=== PATIENT | female | born 1950 | race Caucasian/White ===

== ENCOUNTER 2020-08-01 08:13 | Outpatient (CLI) | payer MEDICARE, SELFPAY ==
--- NOTE | 2020-08-01 08:21 | MM_ITS ---
WS: [id number] BILATERAL SCREENING DIGITAL MAMMOGRAM WITH CAD HISTORY: SCREENING COMPARISON: 02/03/2019, 07/24/2018 07/30/2017 and 06/11/2014 Bilateral CC and MLO views submitted. Computer aided detection analyzed. Breast composition: The breasts are heterogeneously dense, which may obscure small masses. No suspici ous masses, microcalcifications or architectural distortion. One centimeter asymmetry posterior to th e RIGHT nipple has been present on multiple prior examinations with no change. There are benign calci fications in each breast. MM/[place] [id number] IMPRESSION: BI-RADS: 2-Benign FOLLOW UP: 1 Year Follow-up
== END 2020-08-01 08:14 | disposition home or self-care (01) ==
LOC: RADSHAW 08:17
PROVIDERS: Family Provider Electrodiagnostic Medicine; PCP Electrodiagnostic Medicine; Visit Provider Electrodiagnostic Medicine
DX: Z12.31 Encounter for screening mammogram for malignant neoplasm of breast (principal)
CPT/HCPCS: 77067

== ENCOUNTER → 2021-12-05 09:08 | Outpatient (BNVA) | payer MEDICARE, SELFPAY | PROVIDERS: Family Provider Electrodiagnostic Medicine; PCP Electrodiagnostic Medicine; Referring Provider Electrodiagnostic Medicine; Visit Provider Podiatrist Foot & Ankle Surgery | DX: M20.5X2 Other deformities of toe(s) (acquired), left foot (principal); M20.5X1 Other deformities of toe(s) (acquired), right foot | CPT/HCPCS: 73630; 99203; 99204 ==

== ENCOUNTER → 2022-01-16 09:06 | Outpatient (BNVA) | payer MEDICARE, SELFPAY | PROVIDERS: Family Provider Electrodiagnostic Medicine; PCP Electrodiagnostic Medicine; Visit Provider Podiatrist Foot & Ankle Surgery | DX: M20.5X2 Other deformities of toe(s) (acquired), left foot (principal); M20.5X1 Other deformities of toe(s) (acquired), right foot | CPT/HCPCS: 99213 ==

== ENCOUNTER → 2022-07-02 15:03 | Outpatient (BNVA) | payer MEDICARE, SELFPAY | PROVIDERS: Family Provider Electrodiagnostic Medicine; PCP Electrodiagnostic Medicine; Visit Provider Podiatrist Foot & Ankle Surgery | DX: M20.5X2 Other deformities of toe(s) (acquired), left foot (principal); M20.5X1 Other deformities of toe(s) (acquired), right foot | CPT/HCPCS: 99213 ==

== ENCOUNTER → 2022-07-30 09:39 | Outpatient (BNVA) | payer MEDICARE, SELFPAY | PROVIDERS: PCP Electrodiagnostic Medicine; Visit Provider Podiatrist Foot & Ankle Surgery | DX: M20.5X2 Other deformities of toe(s) (acquired), left foot (principal); M20.5X1 Other deformities of toe(s) (acquired), right foot | CPT/HCPCS: 99214 ==

== ENCOUNTER 2022-08-14 05:40 | Day surgery (SDC) | payer MEDICARE, SELFPAY ==
[2022-08-13 09:04] VITALS: BMI 22.6
[2022-08-14] VITALS (7 sets, daily range): BP systolic 91–123; BP diastolic 55–73; PULSE 61–78; RESP 16–18; TEMP 36.3–36.4; O2SAT 93–97
--- NOTE | 2022-08-14 | XR_ITS ---
WS: [id number] Exam: XR foot LT 2V [id number] Date/Time of Exam: 08/14/2022 12:00 AM Reason For Exam: OR pic. Left foot chilectomy A single lateral image of the left forefoot is obtained for intraoperative purposes.
[2022-08-14] MEDS: acetaminophen 1,000 MG/100 ML PIGGYBACK 400 MG IV (06:13)
[2022-08-14] MEDS: gabapentin 300 mg Capsule PO (06:14)
[2022-08-14] MEDS: sodium chloride 0.9% 1,000 ML 30 ML IV (06:15)
--- NOTE | 2022-08-14 06:48 | W.PM.OPSUD ---
Surgery/Procedure H&P Update DATE OF PROCEDURE: August 14, 2022 DATE H&P PERFORMED: 07/30/22 CHANGES TO PREVIOUS DOCUMENTATION: No changes PREOP DIAGNOSIS: Left foot hallux limitus PLANNED PROCEDURE: Operation Date: 08/14/22 07:00 Proposed Procedures p :?Left foot cheilectomy CPT 31348,M20.22(Left) - Bebeto Miller DPM
--- NOTE | 2022-08-14 06:48 | ANES.PREANE2 ---
Pre-Anesthetic Assessment Height/Weight: Height 1.6 m Weight 58.06 kg Temp Pulse Resp BP Pulse Ox O2 Del Method 97.6 F 61 18 120/73 97 Room Air 08/14/22 06:01 08/14/22 06:01 08/14/22 06:01 08/14/22 06:01 08/14/22 06:01 08/14/22 06:09 Preop Diagnosis: Left foot hallux limitus Operation Date: 08/14/22 07:00 Proposed Procedures p :?Left foot cheilectomy CPT 38464,M20.22(Left) - Bebeto Miller DPM Familial anesthetic complications: None Was Beta Velma taken within 24 hours: N/A Was Clonidine taken within 24 hours: N/A Last intake: Intake Last Liquid Date 08/13/22 Last Liquid Time 22:30 Last Solid Date 08/13/22 Last Solid Time 22:30 Social No alcohol and No tobacco Exam alert, oriented x 3, clear to auscultation bilaterally and regular rate & rhythm Airway Mallampati: Class III Dentition: full Anesthetic Plan ASA status: 2 Anesthesia: MAC Other Pertinent Information alpha gal allergies Medications/Allergies Home Medications Medication Instructions Recorded Confirmed Last Taken Type epinephrine 0.3 mg/0.3 mL 0.3 ml SUBCUT PRN PRN Allergic 08/13/22 08/13/22 Unknown History injection, auto-injector Reaction montelukast 10 mg tablet 10 mg PO DAILY 08/13/22 08/13/22 08/14/22 History Allergies Allergy/AdvReac Type Severity Reaction Status Date / Time penicillin Allergy Mild ADR-Itching Uncoded 08/13/22 09:01 mammal products Allergy rash Uncoded 08/13/22 09:01 Current Medications Generic Name Dose Route Start Last Admin Trade Name Freq PRN Reason Stop Dose Admin Sodium Chloride 1,000 mls @ 30 mls/hr 08/14/22 06:00 08/14/22 06:15 Sodium Chloride 0.9% IV 08/15/22 05:59 30 mls/hr .Q24H PEDRO Administration Data Anesthesia Cardiac Studies: No Data to Display
[2022-08-14] MEDS: clindamycin 600 MG/50 ML PREMIX 100 MG IV (07:05)
--- NOTE | 2022-08-14 15:53 | ANE.PACU2 ---
Inpatient post-anesthesia follow up: Airway intact: Yes Vital signs: Temperature 97.3 F Pulse Rate 68 Respiratory Rate 18 Blood Pressure 123/68 Pulse Oximetry 96 Oxygen Delivery Me thod Room Air Oxygen Flow Rate Fraction of Inspir ed Oxygen Hydration adequate: Yes Nausea and vomiting: No Pain level: 1 Mental status: Baseline
--- NOTE | 2022-08-14 17:00 | PM.OP ---
Operative Report Date of procedure: August 14, 2022 Pre-op diagnosis: Preop Diagnosis Left foot hallux limitus Post-op diagnosis: Same Post-op findings: Significant dorsal spurring to left first metatarsophalangeal joint consistent with hallux limitus. First metatarsal head cartilage appeared healthy with no defects. Subchondral cyst noted to the lateral aspect of first metatarsal head. Procedure done: Left foot first metatarsophalangeal joint cheilectomy CPT 79055 Implants: None Surgeon: Dr. Bebeto Miller D.P.MLuiza Estimated blood loss: Less than 10 cc Complications: None Findings: See above Procedure: Patient is a 72-year-old female that has a history of left hallux limitus. The patient has had the aforementioned chief complaint for some time. Conservative treatment measures have been attempted and the patient has opted for surgical intervention at this time. A lengthy discussion regarding the procedure, including risks and complications has been had with the patient and is noted in the recent clinic note. Written and verbal consent have been obtained. All patient questions have been answered to the patient?s satisfaction. No written or verbal guarantees have been given or implied. The patient has been NPO since midnight. The history has been reviewed and the history and physical is current. The signed consent was confirmed and placed in the patient chart. Patient imaging has been reviewed and is consistent with the diagnosis. Under mild sedation, the patient was brought into the operating room and placed on the table in the supine position. IV antibiotics were given by the anesthesia team as preoperative surgical prophylaxis. IV sedation was then performed by the anesthesiateam. A pneumatic tourniquet was then placed about the left ankle. A local field block was performed using 0.5% Marcaine plain. The operative extremity was then prepped and draped in the usual fashion. The extremity was then elevated and exsanguinated before the tourniquet was inflated to 250 mmHg. After inflation, the following procedure was then performed. Attention was directed to the dorsal aspect of the left first metatarsophalangeal joint where a 6 cm incision was made using a #15 blade. Dissection was carried down through subcutaneous and superficial fascia to the level of the first metatarsal phalangeal joint capsule. This was incised and retracted medially and laterally to protect the adjacent extensor hallucis longus tendon and visualized the first metatarsophalangeal joint. There is noted to be large dorsal spurring of the first metatarsal head. There was also noted to be lipping at the base of the proximal phalanx at the first metatarsophalangeal joint articulation. A rongeur was used to remove the dorsal spurring at the base of the proximal phalanx. A sagittal bone saw was then used to perform a cheilectomy of the first metatarsal in standard fashion. After the cheilectomy was performed there was noted to be a subchondral cyst to the lateral aspect of the first metatarsal head. The first metatarsal head remained stable. A rongeur was used to further contour the first metatarsal head removing medial and lateral spurs. The site was then irrigated with copious amounts of sterile saline before attention was directed to closure. Deep tissue including capsular closure was closed with 3-0 Vicryl followed by subcuticular closure with 4-0 Vicryl and skin closed with 4-0 nylon in horizontal mattress fashion. The tourniquet was let down and good hyperemic response was noted all digits of the left foot. Incision site was dressed with Xeroform, 4 x 4 gauze, Kerlix, Sang. The patient tolerated the procedure and anesthesia well and without complication. The patient was transported from the operating room to the recovery room with vital signs stable and vascular status intact to all digits of the left foot. The patient was given both written and verbal instructions to remain weightbearing as tolerated to the operative extremity, to keep dressings/splint clean, dry and intact and to take pain medication as directed. The patient will follow-up in the outpatient setting at their scheduled appointment. The patient was discharged with my personal number and was instructed to call if any questions or issues should arise. They were discharged home once anesthesia criteria was met.
== END 2022-08-14 09:00 | disposition home or self-care (01) ==
PROVIDERS: PCP Electrodiagnostic Medicine; Visit Provider Podiatrist Foot & Ankle Surgery
PROC: (CPT 28289; principal; 2022-08-14 07:00)
DX: M20.22 Hallux rigidus, left foot (principal)
CPT/HCPCS: 28289; 73620; 76000; J0131; J2250; J2704; J3010; J3490; J7030

== ENCOUNTER → 2022-08-28 15:43 | Outpatient (BNVA) | payer MEDICARE, SELFPAY | PROVIDERS: PCP Electrodiagnostic Medicine; Visit Provider Podiatrist Foot & Ankle Surgery | DX: M20.5X2 Other deformities of toe(s) (acquired), left foot (principal); M20.5X1 Other deformities of toe(s) (acquired), right foot | CPT/HCPCS: 73630; 99024 ==

== ENCOUNTER → 2022-10-09 14:04 | Outpatient (BNVA) | payer MEDICARE, SELFPAY | PROVIDERS: PCP Electrodiagnostic Medicine; Visit Provider Podiatrist Foot & Ankle Surgery | DX: M20.5X2 Other deformities of toe(s) (acquired), left foot; M20.5X1 Other deformities of toe(s) (acquired), right foot | CPT/HCPCS: 99024 ==

== ENCOUNTER 2023-07-31 12:50 | Outpatient (CLI) | payer MEDICARE, SELFPAY ==
--- NOTE | 2023-07-31 12:54 | MM_ITS ---
WS: [id number] BILATERAL SCREENING DIGITAL TOMOSYNTHESIS MAMMOGRAM WITH CAD HISTORY: SCREENING COMPARISON: 08/01/2020, 02/03/2019, 07/23/2017 Bilateral CC and MLO views with tomosynthesis and synthetic mammography submitted. Computer aided det ection analyzed. Breast composition: The breasts are heterogeneously dense, which may obscure small masses. No suspici ous masses, microcalcifications or architectural distortion. Long-term stability 10 x 5 mm asymmetry upper outer quadrant RIGHT breast. Benign calcifications in each breast. MM/[place] [id number] IMPRESSION: BI-RADS: 2-Benign FOLLOW UP: 1 Year Follow-up
--- NOTE | 2023-07-31 12:54 | XR_ITS ---
WS: [id number] DEXA (DUAL ENERGY X-RAY ABSORPTIOMETRY) Bone mineral density was performed using a [employer] machine. HISTORY: POSTMENOPAUSAL COMPARISON: 07/25/2017 Lumbar spine BMD (L1-L4): 0.892 g/cm2 T score: -2.4 Z score: -0.6 Total hip BMD: Left: 0.688 g/cm2. T score: -2.5 Z score: -0.9 Right: 0.711 g/cm2. T score: -2.4 Z score: -0.7 10 year probability of a major osteoporotic fracture is 26.4%. Compared to the prior study from 07/25/2017. Lumbar spine bone mineral density has decreased by 7.5%. Bilateral hips bone mineral density has decreased by 7.7%. XR/XR DEXA axial skeleton* [id number] IMPRESSION: OSTEOPOROSIS based upon the WHO classification for females. Since the prior bone mineral density there is been a significant decrease in leena ne mineral density within both the lumbar spine and hips.
== END 2023-07-31 12:51 | disposition home or self-care (01) ==
PROVIDERS: PCP Electrodiagnostic Medicine; Visit Provider Electrodiagnostic Medicine
DX: Z12.31 Encounter for screening mammogram for malignant neoplasm of breast (principal); Z78.0 Asymptomatic menopausal state; R92.333 Mammographic heterogeneous density, bilateral breasts; N64.89 Other specified disorders of breast; R92.1 Mammographic calcification found on diagnostic imaging of breast; M81.0 Age-related osteoporosis without current pathological fracture
CPT/HCPCS: 77063; 77067; 77080

== ENCOUNTER 2024-12-15 08:25 | Outpatient (CLI) | payer MEDICARE, SELFPAY ==
--- NOTE | 2024-12-15 08:30 | MM_ITS ---
WS: [id number] BILATERAL SCREENING DIGITAL TOMOSYNTHESIS MAMMOGRAM WITH CAD HISTORY: SCREENING COMPARISON: 07/31/2023, 08/01/2020, Bilateral CC and MLO views with tomosynthesis and synthetic mammography submitted. Computer aided detection analyzed. Breast composition: The breasts are heterogeneously dense, which may obscure small masses. No suspicious masses, microcalcifications or architectural distortion. Benign calcifications in each breast. MM/MM scr tomosynthesis [id number] IMPRESSION: BI-RADS: 2 - Benign FOLLOW UP: 1 Year Follow-up
== END 2024-12-15 08:26 | disposition home or self-care (01) ==
PROVIDERS: PCP Electrodiagnostic Medicine; Visit Provider Electrodiagnostic Medicine
DX: Z12.31 Encounter for screening mammogram for malignant neoplasm of breast (principal); R92.1 Mammographic calcification found on diagnostic imaging of breast; R92.333 Mammographic heterogeneous density, bilateral breasts
CPT/HCPCS: 77063; 77067